=== PATIENT | female | born 1950 | race Caucasian/White ===

== ENCOUNTER 2018-05-04 15:16 | Day surgery (SDC) | payer MEDICARE ==
[~2018-05-04] VITALS: Ht 152.4 cm; Wt 115.8 kg
[2018-05-04] VITALS (8 sets, daily range): BP systolic 126–153; BP diastolic 47–63; PULSE 73–78; TEMP 97.8–98.5
[2018-05-04] MEDS ORDERED: NOVOLOGMIX70/30 SQ ×2 (16:12→16:13)
[2018-05-04] MEDS ORDERED: ASPIRIN 32325 MG/TAB PO (16:13)
[2018-05-04] MEDS ORDERED: EXFORGE 10 MG-31 TAB PO (16:14)
[2018-05-04] MEDS ORDERED: CRESTOR 10MG10 MG PO (16:14)
[2018-05-04] MEDS ORDERED: COREG 25MG25 MG/TAB PO (16:14)
[2018-05-04] MEDS ORDERED: HYGROTON 2525 MG/TAB PO (16:15)
--- NOTE | 2018-05-04 16:16 | NUR ---
TO RM AT 1528- CALL LIGHT IN REACH BLOOD SUGAR AT 1400 AT HOME 60- DRANK 5 OZ OF OJ BLOOD SUGAR ON ADMIT 102- INFORMED MICHI ARNOLD
--- NOTE | 2018-05-04 19:00 | NUR ---
Receive patient from PACU. Up to bathroom to void, has blood tinged urine. Back to bed. Has IV site to right hand. IVF capped. Is alert and oriented x4. Daughter at bedside.
--- NOTE | 2018-05-04 20:00 | NUR ---
Daughter went to have prescriptions filled. Patient taking clear liquids and pudding without problem. VSS. Denies nausea. Reports mild discomfort to her back at this time.
--- NOTE | 2018-05-04 21:00 | NUR ---
Reviewed discharge instructions with patient. Encouraged fluid intake to continue to clear urine. Patient has follow up appt with Dr Man on May 15. She will call to clarify location, as she has been seeing doctor when he is in [place]. DC'd IV site, angiocath intact. Patient up to bathroom to get dressed.
--- NOTE | 2018-05-04 21:20 | NUR ---
Patient taken via w/c to private vehicle, accompanied by her daughter and surgical staff. Belongings sent with patient.
== END 2018-05-04 21:20 | disposition home or self-care (01) ==
LOC: SDCO 15:16 → EDSEX 17:30 → SDCO 17:30 → SURG 20:37 → SDCO 21:20
DX: N28.89 Other specified disorders of kidney and ureter (principal); E11.9 Type 2 diabetes mellitus without complications; E78.5 Hyperlipidemia, unspecified; E78.00 Pure hypercholesterolemia, unspecified; I10 Essential (primary) hypertension; M19.90 Unspecified osteoarthritis, unspecified site; Z90.710 Acquired absence of both cervix and uterus; Z79.82 Long term (current) use of aspirin; Z79.4 Long term (current) use of insulin; Z88.8 Allergy status to other drugs, medicaments and biological substances; Z87.891 Personal history of nicotine dependence
CPT/HCPCS: C1769; J1100; J2405; J2704; J3010; J7030; Q9967

== ENCOUNTER 2018-05-19 09:16 | Inpatient (IN) | payer MEDICARE ==
[~2018-05-19] VITALS: Ht 152.4 cm; Wt 116.9 kg
[~2018-05-19 09:16] MED LIST: ASPIRIN 32325 MG/TAB PO; COREG 25MG25 MG/TAB PO; CRESTOR 10MG10 MG PO; EXFORGE 10 MG-31 TAB PO; HYGROTON 2525 MG/TAB PO; NOVOLOGMIX70/30 SQ
[2018-06-06] VITALS (9 sets, daily range): BP systolic 114–143; BP diastolic 52–60; PULSE 50–65; TEMP 98.1
--- NOTE | 2018-06-06 16:28 | NUR ---
Patient to room 350, report from Mery in PACU. Patient drowsy, but easy to arouse. Friend at bedside. Ivf to Right hand. Scds ble. Abdomen obese-robotic lap site x8, bandaids intact. One incision to RLQ with gauze and tegaderm intact. Patient Kraft to DD. Will continue to closely monitor. Vss on O2
--- NOTE | 2018-06-06 20:04 | NUR ---
Patient continues to do well. Friend at bedside. Patient assisted up to the chair, 1 assist & she did well. Patient did have one lap site that had small amount of bloody drainage, lap site reenforced with gauze & hypafix tape. Ivf per orders. Urine output marginal. She is tolerating water. no emesis. Vss, but she continues to require O2. Tele on per orders, hospitalist rounded & order obtained. Bedside report to Seda Marin
[2018-06-06 20:37] LABS: BASO % 0.2 % (0.0-2.0); EOS % 0.1 % (0-4.0); GRAN # 7.4 (1.4-6.5); GRAN % 84.4 % (42.2-75.2); HEMOGLOBIN 12.1 g/dl (12.5-16.0); LYMPH # 0.7 (1.2-3.4); LYMPH % 7.8 % (20.0-51.0); MEAN CELL VOLUME 99 fl (80.0-100.0); MEAN CORPUSCULAR HEMOGLOBIN 33 pg (27.0-31.0); MEAN CORPUSCULAR HGB CONC 34 g/dl (33.0-37.0); MEAN PLATELET VOLUME 8.8 fl (7.4-10.4); MONO # 0.6 (0.1-0.6); MONO % 6.9 % (1.7-9.3); PLATELET COUNT 140 K/mm3 (130-400); RED BLOOD COUNT 3.62 M/mm3 (4.10-5.30); REDCELL DISTRIBUTION WIDTH-CV 12.4 % (11.5-14.5)
[2018-06-06 20:46] LABS: HEMATOCRIT 35.7 % (37.0-47.0)
[2018-06-06 20:48] LABS: CALCIUM 8.3 mg/dL (8.4-10.2); CREATININE, serum 1.21 mg/dL (0.52-1.25); POTASSIUM 4.8 mmol/L (3.4-5.0)
--- NOTE | 2018-06-06 22:09 | NUR ---
Pt resting in recliner, helped to bed, noted that she had active bleeding showing on her gown, checked laparoscopic incision sites and noted upper right site bleeding through the bandaid, reinforced site with telfa pad and gauze, covered with tegaderm and secured with tape. Completed shift assessments, left Pt call light in reach, bed in lowest position.
[2018-06-07] VITALS (7 sets, daily range): BP systolic 109–138; BP diastolic 37–52; PULSE 61–73; TEMP 97.8–99.2
[2018-06-07 06:55] LABS: BASO % 0.1 % (0.0-2.0); EOS % 0.4 % (0-4.0); GRAN # 5.1 (1.4-6.5); GRAN % 73.9 % (42.2-75.2); HEMOGLOBIN 11.1 g/dl (12.5-16.0); LYMPH % 14.3 % (20.0-51.0); MEAN CELL VOLUME 98 fl (80.0-100.0); MEAN CORPUSCULAR HEMOGLOBIN 33 pg (27.0-31.0); MEAN CORPUSCULAR HGB CONC 34 g/dl (33.0-37.0); MEAN PLATELET VOLUME 9.3 fl (7.4-10.4); MONO # 0.8 (0.1-0.6); PLATELET COUNT 138 K/mm3 (130-400); RED BLOOD COUNT 3.33 M/mm3 (4.10-5.30); REDCELL DISTRIBUTION WIDTH-CV 12.6 % (11.5-14.5)
[2018-06-07 06:58] LABS: HEMATOCRIT 32.6 % (37.0-47.0)
[2018-06-07 07:08] LABS: CALCIUM 8.1 mg/dL (8.4-10.2); CREATININE, serum 1.31 mg/dL (0.52-1.25); POTASSIUM 4.4 mmol/L (3.4-5.0)
--- NOTE | 2018-06-07 10:18 | NUR ---
SW met with patient about discharge planning. Patient plans to return home upon discharge. Patient lives independently at home by herself but her son and daughter are closeby. Patient's PCP is Dr Cotto and she obtains prescriptions from [facility]. Patient has a cane but only uses it for long distances. There is no other DME reported and patient does not use home health services. Patient does not have a DPOA and is not interested in completing one. SW does not anticipate any discharge needs.
--- NOTE | 2018-06-07 11:09 | NUR ---
Patient doing well. Dr. Duque rounded this am. Patient Vss, weaned off O2. Tele on. bradycardia improved. Patient has ambulated in the halls x2 with ROTO GRAVURE PRESS OPERATOR assist. Encouraged her to chew gum. She denies yet passing flatus. Abdomen soft, obese. Lap sites to Right side of abdomen dressed, no drainage noted. Ivf per order, monitoring Creatine level & urine output closely. Urine output is arnulfo in color, boo will remain in place post discharge. Will continue to monitor.
--- NOTE | 2018-06-07 12:28 | NUR ---
First visit from the j[place] worker. No needs right now.
--- NOTE | 2018-06-07 19:41 | NUR ---
Patient sitting up in chair with visitors at bedside. Patient has done well today. She has been up and ambulated in the halls. Ivf per orders, Urine output has increased and urine output has cleared. Her pain remains managed with tylenol per ERAS protocol. Patient abdomen soft, she denies yet passing gas. Dressings removed from abdomen & marcello intact & edges well approximated. She has tolerated clear liquids & blood sugars have remained control. Tele on & VSS. French report to Eva ROSARIO
--- NOTE | 2018-06-07 21:00 | NUR ---
PT HS INSULIN WAS HELD. PT REAMINS ON CLEAR LIQUID DIET AND BLOOD SUGAR WAS 123, THIS NURSE AND PT DISCUSSED GIVING INLUSIN AND CAME TO THE AGREEMENT TO HOLD IT AT THIS TIME. PT IS Q4 ACCU CHECK AND WILL CHECK AND ADMINSTER SLIDING SCALE INSULIN AT 0000 IF NEEDED. PT SITTING IN RECLINER AT THIS TIME. NO C/O PAIN. INSISION SITES APPEAR TO BE HEALING WELL, EDGES APPPROXIMATED. PT REMAINS ON 2L 02 VIA NC AT THIS TIME AND SATS 96. CAPONE CATH REAMAINS IN PLACE WITH NOTED URINE OUTPUT. IV FLUIDS INFUSING WITHOUT ISSUE. NOISSUES OR CONSERNS VOICED AT THIS TIME.
[2018-06-08 04:10] VITALS: BP 120/42; PULSE 70; TEMP 98.1
--- NOTE | 2018-06-08 06:27 | NUR ---
PT HAD UNEVENTFUL NOC. STATED SHE HAD SLEPT WELL. NO OTHER ISSUES OR CONSERNS VOICED AT THIS TIME. HAS BEEN PLEASANT AND COOPERATIVE WITH CARES
[2018-06-08 08:00] VITALS: BP 137/48; PULSE 71; TEMP 98.2
--- NOTE | 2018-06-08 08:00 | NUR ---
PATIENT SITTING UP IN THE CHAIR THIS MORNING. BREAKFAST TRAY EATEN. PATIENT TOLERATING FULL LIQUID DIET WITHOUT COMPLAINTS OF N/V. PATIENT PASSING FLATUS. PATIENT IS A&O. VSS. BOWEL SOUNDS HYPOACTIVE ALL FOUR QUADRANTS. ABDOMINAL LAP SITES X8 END WORKER WITH UNIQUE INTACT AND EDGES WELL APPOXIMATED. ABDOMEN RIGHT LOWER QUADRANT TRANSVERSE INCISION END WORKER WITH UNIQUE INTACT AND EDGES WELL APPROXIMATED. ECCHYMOSIS AROUND INCISION SITES NOTED. POSITIVE PEDAL PULSES EQUAL BILATERALLY. CAP REFILL <3 SECONDS. CAPONE CATHETER TO DEPENDENT DRAINAGE WITH SMALL AMOUNTS OF CLEAR, PALE YELLOW URINE PRESENT IN CAPONE BAG. RIGHT HAND TO INT. CALL LIGHT WITHIN REACH. PATIENT DENIES ANY OTHER NEEDS AT THIS TIME.
[2018-06-08 08:11] LABS: BASO % 0.2 % (0.0-2.0); EOS # 0.1 (0.0-0.7); EOS % 1.1 % (0-4.0); GRAN # 4.8 (1.4-6.5); GRAN % 73.1 % (42.2-75.2); HEMATOCRIT 30.4 % (37.0-47.0); HEMOGLOBIN 10.1 g/dl (12.5-16.0); LYMPH # 0.9 (1.2-3.4); LYMPH % 14.1 % (20.0-51.0); MEAN CELL VOLUME 100 fl (80.0-100.0); MEAN CORPUSCULAR HEMOGLOBIN 33 pg (27.0-31.0); MEAN CORPUSCULAR HGB CONC 33 g/dl (33.0-37.0); MEAN PLATELET VOLUME 9.3 fl (7.4-10.4); MONO # 0.7 (0.1-0.6); MONO % 11.2 % (1.7-9.3); PLATELET COUNT 115 K/mm3 (130-400); RED BLOOD COUNT 3.03 M/mm3 (4.10-5.30); REDCELL DISTRIBUTION WIDTH-CV 12.9 % (11.5-14.5)
[2018-06-08 08:16] LABS: CALCIUM 8.1 mg/dL (8.4-10.2); CREATININE, serum 1.46 mg/dL (0.52-1.25); POTASSIUM 4.4 mmol/L (3.4-5.0)
[2018-06-08 12:20] VITALS: BP 122/47; PULSE 69; TEMP 98
--- NOTE | 2018-06-08 13:47 | NUR ---
Pt is A&Ox3. 8 lap sites remain clean, dry and intact, with well approximated edges. Kraft is to dependent drainage with light pink output. Pt up to walk x2 this shift remains on the ERAS and has no complaints of pain.
[2018-06-08 16:30] VITALS: BP 115/37; PULSE 71; TEMP 98.4
--- NOTE | 2018-06-08 19:28 | NUR ---
REPORT GIVEN TO ABRAHAM BRITO.
[2018-06-08 20:24] VITALS: BP 119/39; PULSE 65; TEMP 98.1
--- NOTE | 2018-06-08 22:01 | NUR ---
Shift assessment complete. Patient in bed. Denies pain. Lap sites CDI. Kraft to dependant drainage. Snack given d/t 70/30 insulin administration. Face washed, declined to brush teeth. Will continue to monitor.
[2018-06-08 23:10] VITALS: BP 118/41; PULSE 64; TEMP 98.7
[2018-06-09 04:22] VITALS: BP 134/48; PULSE 76; TEMP 99
--- NOTE | 2018-06-09 05:15 | NUR ---
Patient in bed, sleeping. Arouses easily, denies pain. Will continue to monitor.
[2018-06-09 06:48] LABS: BASO % 0.2 % (0.0-2.0); EOS # 0.1 (0.0-0.7); EOS % 1.8 % (0-4.0); GRAN % 77.1 % (42.2-75.2); LYMPH # 0.7 (1.2-3.4); LYMPH % 10.9 % (20.0-51.0); MEAN CELL VOLUME 99 fl (80.0-100.0); MEAN CORPUSCULAR HEMOGLOBIN 33 pg (27.0-31.0); MEAN CORPUSCULAR HGB CONC 34 g/dl (33.0-37.0); MEAN PLATELET VOLUME 9.2 fl (7.4-10.4); MONO # 0.6 (0.1-0.6); MONO % 9.5 % (1.7-9.3); PLATELET COUNT 124 K/mm3 (130-400); REDCELL DISTRIBUTION WIDTH-CV 12.7 % (11.5-14.5)
[2018-06-09 06:49] LABS: HEMATOCRIT 29.7 % (37.0-47.0)
[2018-06-09 06:51] LABS: CALCIUM 7.9 mg/dL (8.4-10.2); CREATININE, serum 1.47 mg/dL (0.52-1.25); POTASSIUM 4.2 mmol/L (3.4-5.0)
[2018-06-09 07:17] VITALS: BP 149/47; PULSE 72; TEMP 98.6
--- NOTE | 2018-06-09 09:33 | NUR ---
BILLY attended clinical rounds. Patient will discharge home today. BILLY presented IM to patient. She signed but did not request a copy.
--- NOTE | 2018-06-09 10:08 | NUR ---
Pt resting in bed A&0x3 with SCD's on reqesting those off so she can go up into the chair. Pt up in chair ordered breakfast and watching tv. No complaints of SOA with 1L of O2 on. Pt talked to doctor Donovan who stated "he was ok for her to go home." Pt talked to daughter who is her ride home and stated her daughter will be here around 0930 to 1000. Pt requested shower talked to primary RN who said lets have her shower before her daughter gets here and take off telementry and discountine IV site. Before shower IV site removed wtih catheter intact and telementry removed. Pt showered and got dressed, daughter at bedside.
--- NOTE | 2018-06-09 12:45 | NUR ---
DISCHARGE INSTRUCTIONS REVIEWED IN DEPTH WITH PATIENT AND FAMILY MEMBER. CAPONE AND LEG BAG TEACHING COMPLETE. ALL QUESTIONS ANSWERED. PATIENT PERSONAL BELONGINGS GATHERED. PATIENT TAKEN TO PERSONAL VEHICLE VIA WHEELCHAIR BY SURGICAL STAFF. PATIENT DISCHARGED.
== END 2018-06-09 12:45 | disposition home or self-care (01) | DRG 657 ==
LOC: INPTSU 06-06 08:48 → SURG 06-06 11:00
PROVIDERS: Physician Assistant; ADMIT Urology
PROC: 0TT64ZZ Resection of Right Ureter, Percutaneous Endoscopic Approach (ICD-10-PCS; 2018-06-06)
PROC: 0TT04ZZ Resection of Right Kidney, Percutaneous Endoscopic Approach (ICD-10-PCS; principal; 2018-06-06 11:00)
DX: C65.1 Malignant neoplasm of right renal pelvis (principal); Z68.43 Body mass index [BMI] 50.0-59.9, adult; I10 Essential (primary) hypertension; E11.9 Type 2 diabetes mellitus without complications; E78.5 Hyperlipidemia, unspecified; E66.9 Obesity, unspecified; Z87.891 Personal history of nicotine dependence; Z79.4 Long term (current) use of insulin; R00.1 Bradycardia, unspecified
CPT/HCPCS: 99222; 99231-AI; A4314; A9284; J0690; J1170; J1650; J1815; J2405; J2704; J2710; J2795; J3010; J7030; J7120

== ENCOUNTER → 2018-06-12 | Outpatient (CLI) | payer MEDICARE | LOC: COL.RAD 09:42 | DX: C65.1 Malignant neoplasm of right renal pelvis (principal); Z90.5 Acquired absence of kidney; Z98.890 Other specified postprocedural states | CPT/HCPCS: Q9967 ==